=== PATIENT | female | born 1960 | race Caucasian/White ===

== ENCOUNTER → 2018-06-08 12:24 | Outpatient (CLI) | payer OTHER, SELFPAY ==
--- NOTE | 2018-06-08 12:28 | CI_ITS ---
Cerebrovascular Exam Indications: 785.9 Bruit. IMPRESSIONS 1. The bilateral vertebral arteries are patent with normal antegrade flow. 2. Study suggests less than 20% stenosis involving the right internal carotid artery. 3. Study suggests 20-49%(lower end of scale)stenosis involving the left internal carotid artery. History: A bruit of the right carotid artery. Risk factors: Current tobacco use. Hypertension. Hyperlipidemia. Carotid duplex study. Complete study and Doppler flow study including spectral analysis, color and cat scale imaging. Height: Height: 162.6cm. Height: 64in. Weight: Weight: 97.5kg. Weight: 214.6lb. Body mass index: BMI: 36.9kg/m^2. Body surface area: BSA: 2.14m^2. Location: Vascular laboratory. Patient status: Outpatient. Tables: Arterial flow: + +--------+--------+ Location V sys V ed + +--------+--------+ Right CCA - proximal 63.6cm/s 16.5cm/s + +--------+--------+ Right CCA - distal 66cm/s 22.8cm/s + +--------+--------+ Right ECA 99.8cm/s -------- + +--------+--------+ Right ICA - proximal 78.6cm/s 22.8cm/s + +--------+--------+ Right ICA - mid 79.4cm/s 29.9cm/s + +--------+--------+ Right ICA - distal 84.9cm/s 28.3cm/s + +--------+--------+ Right vertebral 29.1cm/s -------- + +--------+--------+ Left CCA - proximal 78.6cm/s 17.3cm/s + +--------+--------+ Left CCA - distal 56.6cm/s 15.7cm/s + +--------+--------+ Left ECA 73.9cm/s -------- + +--------+--------+ Left ICA - proximal 84.1cm/s 24.4cm/s + +--------+--------+ Left ICA - mid 63.6cm/s 20.4cm/s + +--------+--------+ Left ICA - distal 69.1cm/s 21.2cm/s + +--------+--------+ Left vertebral 39.3cm/s -------- + +--------+--------+ Velocity ratios: + + + + + + Right, V sys Right, V ed Left, V sys Left, V ed + + + + + + Max ICA/dist CCA 1.29 1.31 1.49 1.55 + + + + + + (Report amended ) Electronically signed by: [employer] [id number]
== END ==
PROVIDERS: PCP Family Medicine; Visit Provider Family Medicine
DX: R09.89 Other specified symptoms and signs involving the circulatory and respiratory systems (principal)
CPT/HCPCS: 93880

== ENCOUNTER → 2018-08-07 13:07 | Outpatient (CLI) | payer OTHER, SELFPAY ==
--- NOTE | 2018-08-07 13:13 | XR_ITS ---
EXAM: XR lumbar spine min 4V HISTORY: ITS.REASON: RT LOW BACK PAIN ORDERING PHYSICIAN: Ish Monahan MD PATIENT AGE: 57 years COMPARISON: None FINDINGS: There are degenerative disc disease at T12-L1 and L1-L2. There is normal alignment. No fracture or dislocation. There is mild facet arthritic change at L5-S1. Generalized vascular calcification. IMPRESSION: 1. Degenerative disc disease T12-L1 and L1-L2. 2. Facet arthritic change L5-S1
--- NOTE | 2018-08-07 13:13 | XR_ITS ---
XR hip RT 2-3V w/pelvis HISTORY: ITS.REASON: RT HIP AND LEG PAIN ORDERING PHYSICIAN: Ish Monahan MD PATIENT AGE: 57 years COMPARISON: None FINDINGS: No fracture or dislocation is evident. There are mild osteoarthritic changes of the right hip. Small subchondral cyst is present in the lateral acetabulum. IMPRESSION: Mild osteoarthritis of the right hip
== END ==
PROVIDERS: PCP Family Medicine; Visit Provider Family Medicine
DX: M54.5 Low back pain (principal); M25.551 Pain in right hip; M79.604 Pain in right leg
CPT/HCPCS: 72110; 73502

== ENCOUNTER → 2019-10-01 10:10 | Outpatient (CLI) | payer OTHER, SELFPAY ==
--- NOTE | 2019-10-01 10:28 | XR_ITS ---
PROCEDURE: XR HIP RT 2-3V W/PELVIS CLINICAL INDICATION: RT HIP PAIN COMPARISON: HIPCMRT XR hip RT 2-3V w/pelvis from 08/07/2018 FINDINGS: There is slightly more prominent asymmetrical joint space narrowing of the right hip joint when compared to the previous study along with mild sclerotic change of the roof of the acetabulum. The femoral head and neck appear intact. The SI joints and symphysis pubis appear normal, minor arthritic changes are seen left hip. IMPRESSION: Slight interval progression of osteoarthritic changes right hip compared to the previous study Dictated by: Dr. Jatinder Wiggins MD 10/01/2019 12:[address] Jatinder Wiggins MD in [place] 10/01/2019 12:20
--- NOTE | 2019-10-01 10:28 | XR_ITS ---
PROCEDURE: XR LUMBAR SPINE MIN 4V CLINICAL INDICATION: SACROILITIS low back pain radiating down right leg, no recent injury COMPARISON: [id number] XR lumbar spine min 4V from 08/07/2018 FINDINGS: There is normal curvature and alignment where as the previous lumbar study 08/07/2018 showed findings of muscle spasm in the thoracolumbar region. All lumbar vertebrae appear intact. Again noted is prominent anterior osteophytic spurring and disc space narrowing at the T12-L1 level and similar but less prominent changes at the L1-2 level. There is no acute compression fracture. There are mild hypertrophic facet changes at the L4-5 and L5-S1 levels. The SI joints appear normal. There is mild diffuse arteriosclerotic calcification of the infrarenal aorta and proximal iliac arteries but there is no aneurysm. IMPRESSION: Basically stable gyov-[id number]-otpnkmor degenerate disc disease T12-L1 and L1-L2 levels along with hypertrophic facet changes lower lumbar spine Dictated by: Dr. Jatinder Wiggins MD 10/01/2019 12:[address] Jatinder Wiggins MD in [place] 10/01/2019 12:17
== END ==
PROVIDERS: PCP Family Medicine; Visit Provider Family Medicine
DX: M46.1 Sacroiliitis, not elsewhere classified (principal); M25.551 Pain in right hip
CPT/HCPCS: 72110; 73502